=== PATIENT | male | born 1960 ===

== ENCOUNTER 2024-11-26 06:11 | Day surgery (SDC) | payer OTHER, SELFPAY ==
[2024-11-26] VITALS (7 sets, daily range): BP systolic 133–156; BP diastolic 81–90; BMI 44.4
[2024-11-26] MEDS: NORMOSOL-R/PLASMALYTE-A 1000 IV (08:32)
== END 2024-11-26 12:08 | disposition home or self-care (01) ==
LOC: SDS 06:11
PROVIDERS: ATTENDING PHYSICIAN Otolaryngology
DX: J32.9 Chronic sinusitis, unspecified (principal); J34.2 Deviated nasal septum; J33.9 Nasal polyp, unspecified
CPT/HCPCS: 31276; 30520; 31267; 88304; 88311